=== PATIENT | male | born 1935 | race Caucasian/White ===

== ENCOUNTER → 2016-07-01 | Outpatient (CLI) | payer OTHER ==
[~2016-07-01] MED LIST: ASPIRIN81 M2 PO; Aspirin E.C. PO; CARDIZEM CD240 MG PO; CO Q-10400 MG PO; COMBIVENT INH14.7 GM IH; COMBIVENT200 INHALA; CYMBALTA60 MG; CYMBALTA60 MG PO; CoQ-10 PO; Coumadin,Jantoven PO; Cymbalta PO; DILTIAZEM; ENDOCET 5-3251 EACH PO; HYDROCHLOROTH12.5 M3 PO; HYDROCHLOROTHIA25 MG; HYDROCHLOROTHIA25 MG PO; HYDROCODON-ACE1 EAC7 PO; IRON325 MG PO; Imodium PO; Lanoxin,Digitek PO; Lovenox SC; OMEPRAZOLE40 M1; OMEPRAZOLE40 M1 PO; PERI-COLACE TA1 EACH PO; PRAVACHOL20 MG PO; PRAVASTATIN SOD20 MG; PRESERVISIO1 CAPSULE PO; PRESERVISION T1 EACH PO; Preservision AREDS S PO; ST. JOSEPH ASPI81 MG PO; STOOL SOFTENER50 MG PO; XARELTO20 MG PO
== END | disposition home or self-care (01) ==
LOC: RAD 09:55
DX: M47.895 Other spondylosis, thoracolumbar region (principal); R91.8 Other nonspecific abnormal finding of lung field
CPT/HCPCS: 71111